=== PATIENT | female | born 1985 | race Caucasian/White ===

== ENCOUNTER 2016-05-05 21:56 | Emergency (ER) | payer OTHER ==
[~2016-05-05] VITALS: Ht 157.5 cm; Wt 65.9 kg
[~2016-05-05 21:56] MED LIST: GLIP5 PO; METF500T4 PO
[2016-05-05] MEDS ORDERED: SITA25 PO (22:20)
[2016-05-05] MEDS ORDERED: METF500T4 PO (22:20)
[2016-05-05 22:22] LABS: GLUCOSE,POINT OF CARE 390 MG/DL (70-110)
[2016-05-05 23:42] LABS: APPEARANCE,URINE CLEAR (CLEAR); GLUCOSE, URINE (UA) >=1000 mg/dL (NEGATIVE); KETONES,URINE NEGATIVE (NEGATIVE); LEUKOCYTE ESTERASE ,URINE NEGATIVE (NEGATIVE); OCCULT BLOOD,URINE LARGE (NEGATIVE); PROTEIN,URINE NEGATIVE (NEGATIVE)
[2016-05-05 23:44] LABS: ADD UA MICROSCOPIC YES
[2016-05-05 23:56] LABS: SQUAMOUS EPITHELIAL CELL,UR Moderate /LPF (None Seen)
[2016-05-06 00:50] LABS: GLUCOSE,POINT OF CARE 286 MG/DL (70-110)
[2016-05-06] MEDS ORDERED: IPRATROPIUM BROMIDE 0.5 MG/2.5 ML NEB SOLUTION NEB ONE ×2 (01:00→03:45)
[2016-05-06] MEDS ORDERED: ALBUTEROL SULFATE 5 MG/ML 20 ML NEB SOLN [BULK] NEB ONE ×2 (01:00→03:45)
[2016-05-06] MEDS ORDERED: SODIUM CHLORIDE 0.9% 1,000 ML IV ONE (01:00)
[2016-05-06 01:18] LABS: BASOPHILS # (AUTO) 0.02 K/uL (0.00-0.20); BASOPHILS % (AUTO) 0.4 % (0.0-2.0); EOSINOPHILS # (AUTO) 0.01 K/uL (0.00-0.70); EOSINOPHILS % (AUTO) 0.25 % (1.0-6.0); HEMATOCRIT 34.9 % (36-46); LYMPHOCYTES # (AUTO) 1.1 K/uL (1.0-4.8); LYMPHOCYTES % (AUTO) 18.7 % (22.0-44.0); MEAN CORPUSCULAR HEMOGLOBIN 29.1 pg (26.0-34.0); MEAN CORPUSCULAR HGB CONC 34.4 G/dL (31.0-37.0); MEAN CORPUSCULAR VOLUME 85 fL (80-100); MONOCYTES # (AUTO) 0.5 K/uL (0.1-1.0); MONOCYTES % (AUTO) 9.3 % (2.0-9.0); NEUTROPHILS # (AUTO) 4.1 K/uL (1.8-7.7); NEUTROPHILS % (AUTO) 71.3 % (40.0-70.0); PLATELET COUNT (AUTO) 336 K/uL (150-450); RED BLOOD CELL COUNT(AUTO) 4.12 MIL/uL (4.00-5.20); RED CELL DISTRIBUTION WIDTH 13.2 % (11.5-14.5); WHITE BLOOD COUNT (AUTO) 5.8 K/uL (4.5-11.0)
[2016-05-06 01:28] LABS: ANION GAP 12 mmol/L (8-16); CALCIUM, TOTAL 8.1 mg/dL (8.8-10.5); CARBON DIOXIDE 23 mmol/L (22-29); CHLORIDE 102 mmol/L (98-107); CREATININE 0.63 mg/dL (0.60-1.30); GLOMERULAR FILTR. RATE CALC > 60 mL/min (>60); POTASSIUM 3.5 mmol/L (3.5-5.1); SODIUM SERUM 137 mmol/L (136-145); UREA NITROGEN, BLOOD 7 mg/dL (7-18)
[2016-05-06] MEDS ORDERED: AMBROXOL PO (01:28)
[2016-05-06] MEDS ORDERED: CEFTRIAXONE PO (01:28)
[2016-05-06] MEDS ORDERED: [UNRECOGNIZED DRUG - OTHER] PO (01:28)
[2016-05-06 01:34] LABS: ALANINE AMINOTRANSFERASE 39 U/L (12-78); ALBUMIN 3.4 g/dL (3.4-5.0); ASPARTATE AMINOTRANSFERASE 22 U/L (15-37); BILIRUBIN,TOTAL 0.2 mg/dL (0.1-1.0); TOTAL PROTEIN, SERUM 7.4 g/dL (6.4-8.2)
[2016-05-06 01:37] LABS: LACTIC ACID 1.2 mmol/L (0.4-2.0)
[2016-05-06] MEDS ORDERED: GuaiFENesin/D-METHORPHAN [SUGAR-FREE] 200-20MG/10 ML SYRUP UDCUP PO ONE (03:45)
[2016-05-06] MEDS ORDERED: CefTRIAXone 1 GM/DEXTROSE 50 ML IV ONE (03:45)
[2016-05-06 04:12] VITALS: BP 107/78
[2016-05-06 04:16] LABS: GLUCOSE,POINT OF CARE 276 MG/DL (70-110)
== END 2016-05-06 04:52 | disposition home or self-care (01) ==
LOC: EMS 22:13
DX: J18.9 Pneumonia, unspecified organism (principal); E11.65 Type 2 diabetes mellitus with hyperglycemia; R42 Dizziness and giddiness
CPT/HCPCS: 36415; 71010; 80053; 81001; 81025; 82962; 83605; 84703; 85025; 87040; 94640; 96361; 96365; 99285; J0696; J7030; J7611

== ENCOUNTER 2017-05-24 08:35 | Emergency (ER) | payer BC, OTHER ==
[~2017-05-24] VITALS: Ht 170.2 cm; Wt 81.8 kg
[~2017-05-24 08:35] MED LIST changes: +AMBROXOL PO; +CEFTRIAXONE PO; -GLIP5 PO; +SITA25 PO; +[UNRECOGNIZED DRUG - OTHER] PO
[2017-05-24] MEDS ORDERED: INSREG SQ (08:45)
[2017-05-24 08:53] LABS: GLUCOSE,POINT OF CARE 332 MG/DL (70-110)
[2017-05-24] MEDS ORDERED: IBUPROFEN 800 MG TABLET PO ONE (11:30)
[2017-05-24 13:49] VITALS: BP 110/59
== END 2017-05-24 14:28 | disposition home or self-care (01) ==
LOC: EMS 08:36
DX: S29.012A Strain of muscle and tendon of back wall of thorax, initial encounter (principal); S46.912A Strain of unspecified muscle, fascia and tendon at shoulder and upper arm level, left arm, initial encounter; S00.93XA Contusion of unspecified part of head, initial encounter; E11.9 Type 2 diabetes mellitus without complications; W18.2XXA Fall in (into) shower or empty bathtub, initial encounter; Y93.89 Activity, other specified; Y92.89 Other specified places as the place of occurrence of the external cause; Y99.8 Other external cause status
CPT/HCPCS: 72070; 82962; 99284

== ENCOUNTER 2017-07-19 07:10 | Emergency (ER) | payer BC, OTHER ==
[~2017-07-19] VITALS: Ht 165.1 cm; Wt 59.1 kg
[~2017-07-19 07:10] MED LIST changes: -AMBROXOL PO; -CEFTRIAXONE PO; +INSREG SQ; -METF500T4 PO; -SITA25 PO; -[UNRECOGNIZED DRUG - OTHER] PO
[2017-07-19 07:22] LABS: GLUCOSE,POINT OF CARE 279 MG/DL (70-110)
[2017-07-19 07:54] LABS: BASOPHILS % (AUTO) 0.5 % (0.0-2.0); EOSINOPHILS % (AUTO) 0.8 % (1.0-6.0); HEMATOCRIT 39.9 % (36-46); HEMOGLOBIN 13.7 g/dL (12.0-16.0); LYMPHOCYTES # (AUTO) 1.3 K/uL (1.0-4.8); LYMPHOCYTES % (AUTO) 16.4 % (22.0-44.0); MEAN CORPUSCULAR HEMOGLOBIN 29.3 pg (26.0-34.0); MEAN CORPUSCULAR HGB CONC 34.3 G/dL (31.0-37.0); MEAN CORPUSCULAR VOLUME 85 fL (80-100); MONOCYTES # (AUTO) 0.4 K/uL (0.1-1.0); MONOCYTES % (AUTO) 4.8 % (2.0-9.0); NEUTROPHILS % (AUTO) 77.5 % (40.0-70.0); PLATELET COUNT (AUTO) 305 K/uL (150-450); RED BLOOD CELL COUNT(AUTO) 4.68 MIL/uL (4.00-5.20); RED CELL DISTRIBUTION WIDTH 12.5 % (11.5-14.5)
[2017-07-19 08:05] LABS: ANION GAP 10 mmol/L (8-16); CALCIUM, TOTAL 8.9 mg/dL (8.8-10.5); CARBON DIOXIDE 27 mmol/L (22-29); CHLORIDE 99 mmol/L (98-107); CREATININE 0.71 mg/dL (0.60-1.30); GLOMERULAR FILTR. RATE CALC > 60 mL/min (>60); GLUCOSE,RANDOM 265 mg/dL (70-110); POTASSIUM 3.9 mmol/L (3.5-5.1); SODIUM SERUM 136 mmol/L (136-145); UREA NITROGEN, BLOOD 15 mg/dL (7-18)
[2017-07-19 08:11] LABS: ALANINE AMINOTRANSFERASE 46 U/L (12-78); ALBUMIN 3.8 g/dL (3.4-5.0); ALKALINE PHOSPHATASE 94 U/L (46-116); ASPARTATE AMINOTRANSFERASE 26 U/L (15-37); BILIRUBIN,TOTAL 0.5 mg/dL (0.1-1.0); LIPASE 59 U/L (73-393); TOTAL PROTEIN, SERUM 7.6 g/dL (6.4-8.2)
[2017-07-19 09:32] LABS: APPEARANCE,URINE CLEAR (CLEAR); BILIRUBIN,URINE NEGATIVE (NEGATIVE); GLUCOSE, URINE (UA) >=1000 mg/dL (NEGATIVE); KETONES,URINE 15 mg/dL (NEGATIVE); NITRATE,URINE NEGATIVE (NEGATIVE); PH,URINE 5.5 (5.0-8.0); PROTEIN,URINE NEGATIVE (NEGATIVE); UROBILINOGEN,URINE 0.2 mg/dL (<=1.0)
[2017-07-19 09:47] LABS: BACTERIA,URINE None Seen /HPF (None Seen); LEUKOCYTE ESTERASE ,URINE TRACE (NEGATIVE); OCCULT BLOOD,URINE MODERATE (NEGATIVE); SQUAMOUS EPITHELIAL CELL,UR Many /LPF (None Seen); WBC,URINE 0-2 /HPF (0-5)
[2017-07-19] MEDS ORDERED: CIPROFLOXACIN HCL 250 MG TABLET PO ONE (10:30)
[2017-07-19 11:42] VITALS: BP 122/68
== END 2017-07-19 11:43 | disposition home or self-care (01) ==
LOC: EMS 07:11
DX: N83.201 Unspecified ovarian cyst, right side (principal); N39.0 Urinary tract infection, site not specified; E11.9 Type 2 diabetes mellitus without complications; Z79.4 Long term (current) use of insulin
CPT/HCPCS: 76856; 82962; 99285

== ENCOUNTER 2018-08-09 08:41 | Emergency (ER) | payer BC, OTHER ==
[~2018-08-09] VITALS: Ht 162.6 cm; Wt 65.9 kg
[2018-08-09 08:59] LABS: GLUCOSE,POINT OF CARE 321 MG/DL (70-110)
[2018-08-09] MEDS ORDERED: HydrOXYzine PAMOATE 50 MG CAPSULE PO ONE (09:15)
[2018-08-09 09:35] LABS: BASOPHILS % (AUTO) 0.6 % (0.0-2.0); EOSINOPHILS % (AUTO) 1.1 % (1.0-6.0); HEMATOCRIT 42.4 % (36-46); HEMOGLOBIN 14.2 g/dL (12.0-16.0); LYMPHOCYTES # (AUTO) 1.7 K/uL (1.0-4.8); MEAN CORPUSCULAR HEMOGLOBIN 29.2 pg (26.0-34.0); MEAN CORPUSCULAR HGB CONC 33.5 G/dL (31.0-37.0); MEAN CORPUSCULAR VOLUME 87 fL (80-100); MONOCYTES # (AUTO) 0.4 K/uL (0.1-1.0); MONOCYTES % (AUTO) 6.7 % (2.0-9.0); NEUTROPHILS # (AUTO) 4.3 K/uL (1.8-7.7); NEUTROPHILS % (AUTO) 65.6 % (40.0-70.0); PLATELET COUNT (AUTO) 323 K/uL (150-450); RED BLOOD CELL COUNT(AUTO) 4.87 MIL/uL (4.00-5.20); RED CELL DISTRIBUTION WIDTH 12.7 % (11.5-14.5)
[2018-08-09 09:45] LABS: ANION GAP 12 mmol/L (8-16); CALCIUM, TOTAL 9.1 mg/dL (8.8-10.5); CARBON DIOXIDE 24 mmol/L (22-29); CHLORIDE 99 mmol/L (98-107); CREATININE 0.68 mg/dL (0.60-1.30); GLOMERULAR FILTR. RATE CALC > 60 mL/min (>60); GLUCOSE,RANDOM 300 mg/dL (70-110); POTASSIUM 3.7 mmol/L (3.5-5.1); SODIUM SERUM 135 mmol/L (136-145); UREA NITROGEN, BLOOD 14 mg/dL (7-18)
[2018-08-09 09:52] LABS: ALANINE AMINOTRANSFERASE 61 U/L (12-78); ALBUMIN 3.9 g/dL (3.4-5.0); ALKALINE PHOSPHATASE 97 U/L (46-116); ASPARTATE AMINOTRANSFERASE 31 U/L (15-37); BILIRUBIN,TOTAL 0.4 mg/dL (0.1-1.0); TOTAL PROTEIN, SERUM 7.6 g/dL (6.4-8.2)
[2018-08-09 11:20] VITALS: BP 105/69
== END 2018-08-09 11:32 | disposition home or self-care (01) ==
LOC: EMS 08:41
DX: E11.65 Type 2 diabetes mellitus with hyperglycemia (principal); R07.89 Other chest pain; F41.9 Anxiety disorder, unspecified; R06.02 Shortness of breath; Z90.49 Acquired absence of other specified parts of digestive tract; Z79.4 Long term (current) use of insulin
CPT/HCPCS: 93005

== ENCOUNTER 2018-08-22 08:12 | Emergency (ER) | payer OTHER ==
[~2018-08-22] VITALS: Ht 162.6 cm; Wt 65.9 kg
[2018-08-22 08:25] LABS: GLUCOSE,POINT OF CARE 350 MG/DL (70-110)
[2018-08-22] MEDS ORDERED: INSU100I40 SQ (08:25)
[2018-08-22] MEDS ORDERED: KETOROLAC TROMETHAMINE 30 MG/ML VIAL IM ONE (09:15)
[2018-08-22 10:06] VITALS: BP 108/71
== END 2018-08-22 10:08 | disposition home or self-care (01) ==
LOC: EMS 08:14
DX: J20.9 Acute bronchitis, unspecified (principal); J02.9 Acute pharyngitis, unspecified; E11.9 Type 2 diabetes mellitus without complications; Z79.4 Long term (current) use of insulin; Z90.49 Acquired absence of other specified parts of digestive tract
CPT/HCPCS: 82962; 96372; 99283; J1885

== ENCOUNTER 2021-03-18 19:37 | Emergency (ER) | payer OTHER ==
[~2021-03-18] VITALS: Ht 170.2 cm; Wt 55.0 kg
[~2021-03-18 19:37] MED LIST changes: -INSREG SQ; +INSU100I40 SQ
[2021-03-18] MEDS ORDERED: ACETAMINOPHEN 500 MG TABLET PO ONE (22:15)
[2021-03-18] MEDS ORDERED: IBUPROFEN 600 MG TABLET PO ONE (22:15)
[2021-03-18 23:44] VITALS: BP 120/80
== END 2021-03-18 23:45 | disposition home or self-care (01) ==
LOC: EMS 19:41
DX: M79.622 Pain in left upper arm (principal); E11.65 Type 2 diabetes mellitus with hyperglycemia
CPT/HCPCS: 82962; 93005; 99283; 99284